=== PATIENT | male | born 1990 | race Caucasian/White ===

== ENCOUNTER 2024-10-23 04:40 | Emergency (ER) | payer MEDICAID ==
[~2024-10-23] VITALS: Ht 172.7 cm; Wt 73.0 kg
[2024-10-23 04:54] VITALS: O2SAT 99
[2024-10-23] MEDS: ONDANSETRON HCL 4MG/2ML INJ IV STA (04:56)
[2024-10-23] MEDS: SODIUM CHLORIDE 0.9% 1,000 ML IV ONE (05:57)
[2024-10-23 06:00] VITALS: TEMP 36.78072; O2SAT 100
[2024-10-23] MEDS: KETOROLAC 30MG/ML VIAL IV STA (06:02)
[2024-10-23 06:13] LABS: HEMOGLOBIN. 14.5 g/dL (14.0-18.0); MEAN CORPUSCULAR HEMOGLOBIN 31.8 pg (28.0-32.0); MEAN CORPUSCULAR HGB CONC 33.7 g/dL (31.0-37.0); MEAN CORPUSCULAR VOLUME 94.4 fL (80.0-94.0); MEAN PLATELET VOLUME 9.4 fl (7.4-10.4); PLATELET 217 x1000/uL (130-400); RED BLOOD CELL COUNT 4.55 mill/uL (4.7-6.1); RED CELL DISTRIBUTION WIDTH 13.4 % (11.6-14.6); WHITE BLOOD COUNT 13.7 x1000/uL (4.5-11.0)
[2024-10-23 06:21] LABS: CARBON DIOXIDE 25 mEq/L (21-32); CHLORIDE 106 mEq/L (98-107); POTASSIUM 3.4 mEq/L (3.5-5.1); SODIUM 141 mEq/L (136-145)
[2024-10-23 06:22] LABS: CALCIUM 9.9 mg/dL (8.7-10.4)
[2024-10-23 06:26] LABS: DIFFERENTIAL COMMENT 1; PROTHROMBIN TIME 11.3 sec (9.6-11.0)
[2024-10-23 06:27] LABS: CREATININE 0.8 mg/dL (0.6-1.3); GLUCOSE 119 mg/dL (70-105); UREA NITROGEN BLOOD 9 mg/dL (9-23)
[2024-10-23 06:28] LABS: ALANINE AMINOTRANSFERASE 11 IU/L (10-49)
[2024-10-23 06:29] LABS: ALBUMIN 4.8 g/dL (3.2-4.8); ASPARTATE AMINOTRANSFERASE 17 IU/L (<34); BILIRUBIN DIRECT 0.3 mg/dL (<=3.0); PROTEIN TOTAL 7.8 g/dL (6.0-8.3)
[2024-10-23 07:04] LABS: ETHANOL BLOOD < 10 mg/dL (<10)
[2024-10-23] MEDS ORDERED: CEFTRIAXONE 1GM/50ML 50 ML IV ONE (07:15)
[2024-10-23] MEDS: METRONIDAZOLE 500 MG PREMIX 100 ML IV ONE (08:32)
[2024-10-23 08:43] LABS: PLATELET ESTIMATE NORMAL
[2024-10-23] MEDS ORDERED: BUPIVACAINE HCL/PF 0.5% (5MG/ML) 10ML ONE ×2 (09:30→11:01)
[2024-10-23] MEDS ORDERED: HYDRALAZINE 20MG/ML VIAL IV PRN (11:00)
[2024-10-23] MEDS ORDERED: IPRATROPIUM/ALBUTEROL 0.5-3(2.5)MG/3ML NEB HHN PRN (11:00)
[2024-10-23] MEDS ORDERED: ONDANSETRON HCL 4MG/2ML INJ IV PRN ×2 (11:00→12:45)
[2024-10-23] MEDS ORDERED: SKIN ADHESIVE 0.7 GM EA TOP ONE (11:01)
[2024-10-23] MEDS ORDERED: DEXAMETHASONE 4MG/ML 1ML VIAL ONE (11:33)
[2024-10-23] MEDS ORDERED: ONDANSETRON HCL 4MG/2ML INJ ONE (11:33)
[2024-10-23] MEDS ORDERED: METOCLOPRAMIDE HCL 10MG/2ML VIAL ONE (11:33)
[2024-10-23] MEDS ORDERED: VECURONIUM BROMIDE 10 MG/VIAL IV ONE (11:33)
[2024-10-23] MEDS ORDERED: FENTANYL CITRATE/PF 50MCG/ML 2ML VIAL ONE (11:34)
[2024-10-23] MEDS ORDERED: PROPOFOL 200MG/20ML VIAL IV ONE (11:34)
[2024-10-23] MEDS ORDERED: MIDAZOLAM HCL 2 MG/2 ML VIAL ONE (11:35)
[2024-10-23] MEDS ORDERED: SUCCINYLCHOLINE CHLORIDE 200MG/10ML IV ONE (11:40)
[2024-10-23] MEDS ORDERED: ACETAMINOPHEN 1000MG/100ML 100 ML IV ONE (11:55)
[2024-10-23] MEDS ORDERED: CEFAZOLIN SODIUM 1000MG/VIAL ONE ×2 (12:03→12:10)
[2024-10-23] MEDS ORDERED: LIDOCAINE HCL 1% 20ML VIAL ONE (12:17)
[2024-10-23] MEDS ORDERED: NEOSTIGMINE METHYLSULFATE 1MG/ML 10 ML VIAL ONE (12:23)
[2024-10-23] MEDS ORDERED: GLYCOPYRROLATE 0.2 MG/ML 2ML VIAL ONE (12:23)
[2024-10-23] MEDS ORDERED: EPHEDRINE SULFATE 50MG/ML VIAL ONE (12:24)
[2024-10-23] MEDS ORDERED: KETOROLAC 30MG/ML VIAL ONE (12:42)
[2024-10-23] MEDS ORDERED: HYDROMORPHONE HCL/PF 1MG/ML INJ IV PRN (12:45)
[2024-10-23 14:02] VITALS: BP 94/58; PULSE 75; RESP 16
[2024-10-23] MEDS: ACETAMINOPHEN WITH CODEINE 300/30MG TABLET PO NR (14:02)
== END 2024-10-23 11:26 | disposition admitted as inpatient to this hospital (09) ==
LOC: ER 04:53 → EDBEDREQ 08:03 → EDBEDREQTM 09:43 → EDBEDREQ 09:43 → ER 11:26
DX: K35.80 Unspecified acute appendicitis (principal)
CPT/HCPCS: 44970; 80076; 80048; 80320; 83690; 85025; 85610; 36415; 88304; 74177; 96361; 96365; 96375; 99285; J3010; J0665; J0690; J1100; J3490 ×5; J1885; J2765; J2250; J2710; J2405; J2704; J0330; J7030 ×2; A4217 ×2; Z7610 ×24; A4606; G0480; J0131